=== PATIENT | female | born 1990 | race African-American/Black ===

== ENCOUNTER 2017-04-23 08:49 | Day surgery (SDC) | payer OTHER ==
[2017-04-23] MEDS ORDERED: ESCITALOPRAM OX10 MG PO (09:12)
[2017-04-23] MEDS ORDERED: ALPR0.5T PO (09:12)
[2017-04-23] MEDS ORDERED: ACET-704 PO (09:13)
[2017-04-23] MEDS ORDERED: GABA-585 PO (09:14)
[2017-04-23] MEDS ORDERED: MIDAZOLAM HCL/PF 2 MG/2 ML VIAL. ONE (09:44)
[2017-04-23] MEDS ORDERED: SEVOFLURANE 31 TO 60 MINUTES. IH ONE (09:44)
[2017-04-23] MEDS ORDERED: ONDANSETRON PF 4 MG/2 ML VIAL. ONE (09:44)
[2017-04-23] MEDS ORDERED: fentaNYL PF VIAL 100 MCG/2 ML VIAL ONE (09:44)
[2017-04-23] MEDS ORDERED: PROPOFOL 20 ML IV ONE (09:44)
[2017-04-23] MEDS ORDERED: DEXAMETHASONE SOD PHOS 20 MG/5 ML VIAL. ONE (09:44)
[2017-04-23] MEDS ORDERED: LIDOCAINE 2% PF Vial for OR 5 ML VIAL. ONE (09:44)
[2017-04-23 09:48] LABS: NEG OBC UR NEG; POS OBC UR POS
--- NOTE | 2017-04-23 10:52 | DISCH ---
DISCHARGE INSTRUCTIONS Condition on Discharge Condition on Discharge: Stable Activity After Discharge Activity Instructions for Disc: Activity as tolerated Lifting Instructions after Dis: No heavy lifting Driving Instructions after Dis: Do not drive today Diet after Discharge Diet after Discharge: Regular Contacting the [facility] after DC Call your doctor for: Concerns you may have Follow-Up Follow up with: Dr. Kruger in 1 week. CONRADO KRUGER Jr, MD Apr 23, 2017 10:52
--- NOTE | 2017-04-23 10:52 | PDOC ---
BRIEF OPERATIVE NOTE Pre-Op Diagnosis AUB Post-Op Diagnosis SAme + Endometrial polyp Procedure Performed Op [facility] [place]. Kruger Anesthesia Type: General Blood Loss 25 ml Specimens Obtained endometrial polyp Findings endometrial polyp Complications none CONRADO KRUGER Jr, MD Apr 23, 2017 10:52
[2017-04-23] MEDS ORDERED: OXYC-323 PO (10:54)
--- NOTE | 2017-04-23 11:08 | OP ---
DATE OF SURGERY: PREOPERATIVE DIAGNOSIS: Abnormal uterine bleeding. POSTOPERATIVE DIAGNOSIS: Abnormal uterine bleeding plus endometrial polyps. PROCEDURE: Operative hysteroscopy. SURGEON: Lester Kruger MD ANESTHESIA: GETA. ESTIMATED BLOOD LOSS: 25 mL. COMPLICATIONS: None. FINDINGS: Endometrial polyps. SUMMARY: A 27-year-old with abnormal uterine bleeding with suspicion for endometrial polyps. The patient was counseled on operative hysteroscopy for polypectomy. Risks, benefits and expectations voiced a clear understanding to proceed. DESCRIPTION OF PROCEDURE: The patient was taken to surgery suite and placed in dorsal lithotomy position. She was prepped with Betadine solution and draped in a sterile fashion. After adequate anesthesia, weighted speculum and curved [place] were placed vaginally and anterior lip of the cervix grasped with single tooth tenaculum. Cervix was dilated with Hegar dilators up to a size 6. The TruClear hysteroscope was then placed. There were 2 polyps that were visualized and removed with the TruClear device. The fallopian tube ostia appeared normal bilaterally. The hysteroscope was then removed. Single tooth tenaculum and weighted speculum were removed. The patient tolerated the procedure well and was taken to recovery room in stable condition. Sponge and needle counts correct x 3. LESTER KRUGER MD DR: HORTENCIA/tushar JOB#: [id number] / [id number]
[2017-04-23] MEDS ORDERED: oxyCODONE/APAP 5/325 1 TAB TABLET PO ONE (11:30)
[2017-04-23] MEDS ORDERED: IV RINGERS,LACTATED 1000ML 1,000 ML IV SCH (11:53)
[2017-04-23 12:25] VITALS: BP 99/61
--- NOTE | 2017-04-24 17:05 | PATHOLOGY ---
PATHOLOGY REPORT * * * * * * * * FINAL DIAGNOSIS: Endometrial biopsy: - Secretory endometrium and segments of smooth muscle. See comment. COMMENT: Sections of the endometrial biopsy primarily reveal segments of secretory endometrium. There are segments of smooth muscle which focally contain small foci of endometrial tissue. The latter either represents basalis endometrium in a tangential section or represents adenomyosis. There is no evidence of hyperplasia or malignancy. (JPM:db; 04/24/2017) REPORT ELECTRONICALLY SIGNED BY: Wilfred Frias M.D. DATE/TIME: 04/24/2017 17:04 * * * * * * * * GROSS PATHOLOGY: Received in formalin labeled "Laura Rodriguez, endometrial biopsy," are several segments of red-yang membranous tissue admixed with mucoid material measuring 3.2 x 2.5 x 0.6 cm in aggregate dimensions. The specimen is submitted entirely in cassette A1. (JPM; 04/23/17) INITIAL CPT CODE(S): A; 27515 Professional services performed [place] [place] [address] Technical services performed by [facility] at [address] [place] [address] [address], [place] [address]. Christine Duarte PA-C; fax SPECIMEN(S) RECEIVED: A.Endometrial biopsy CLINICAL HISTORY: Menorrhagia PATIENT: LAURA RODRIGUEZ /AGE: 704/12/1990 (Age: 27) PATIENT #: [id number] ALT CASE #: SPECIMEN COLLECTION DATE: 04/23/2017 SPECIMEN RECEIVED DATE: 04/23/2017 [facility] - [address] [place] [address] - PHONE: [phone] * * * END OF REPORT * * *
== END 2017-04-23 12:43 | disposition home or self-care (01) ==
LOC: SURG 08:49
PROVIDERS: ATTEND Obstetrics & Gynecology
DX: N84.0 Polyp of corpus uteri (principal); F41.9 Anxiety disorder, unspecified; F32.9 Major depressive disorder, single episode, unspecified; F17.200 Nicotine dependence, unspecified, uncomplicated; Z87.39 Personal history of other diseases of the musculoskeletal system and connective tissue; Z72.89 Other problems related to lifestyle; Z72.0 Tobacco use
CPT/HCPCS: 58558; 81025; J0690; J1100; J2001; J2250; J2405; J2704; J3010; 88305